=== PATIENT | female | born 1975 | race Caucasian/White ===

== ENCOUNTER 2020-12-14 17:00 | Emergency (ER) | payer BC, SELFPAY ==
--- NOTE | 2020-12-14 17:10 | XR_ITS ---
PROCEDURE INFORMATION: Exam: XR Chest Exam date and time: 12/14/2020 5:10 PM Age: 45 years old Clinical indication: Cough; Additional info: Fever, cough, TECHNIQUE: Imaging protocol: XR of the chest. Views: 2 views. COMPARISON: CR CXR CHEST(2 VIEWS-NOT PORTABLE) 02/16/2015 11:17 PM FINDINGS: Lungs: Unremarkable. No consolidation. Pleural spaces: Unremarkable. No pleural effusion. No pneumothorax. Heart/Mediastinum: Unremarkable. No cardiomegaly. Bones/joints: Unremarkable. IMPRESSION: No acute findings.
--- NOTE | 2020-12-14 17:10 | HMH.EDUTC ---
[facility] – [place] Disposition Clinical Impression: Viral syndrome Asthma exacerbation Qualifiers: Asthma severity: unspecified severity Asthma persistence: unspecified Qualified Code(s): J45.901 - Unspecified asthma with (acute) exacerbation Disposition: Home, Self-Care Condition on Discharge: Good Instructions: DI for Asthma -- Adult Additional Instructions: Drink plenty of fluids. Take tylenol or ibuprofen for pain or fever. Take the medications as directed. Follow up with your regular doctor. GO TO THE ER FOR ANY WORSENING SYMPTOMS Prescriptions: methylPREDNISolone [Medrol] 4 mg PO DIRECTED 6 Days #21 tab.[email or web address] Transmission Status: Received by [facility] Benzonatate [Tessalon Perle 100mg Cap] 100 mg PO TIDP PRN #30 cap PRN Reason: Cough Transmission Status: Received by [facility] Azithromycin [Z-Madi 250mg Tab*] 250 mg PO UD DOSE PK #6 tab Transmission Status: Received by [facility] Referrals: Luis A Abbott MD [Primary Care Provider] - Forms: Work/School Release Time of Disposition: 19:10 Medical Decision Making - Medical Records Medical records reviewed: No: I reviewed the patient's medical records. - Bran Inquiry Pt receiving controlled substance: No Vital Signs: 12/14/20 17:19 12/14/20 19:15 Temperature 102.4 F H 98.9 F Temperature Source Oral Oral Pulse Rate 119 H Pulse Rate [Left] 136 H Respiratory Rate 28 H 22 Blood Pressure 145/83 H Blood Pressure [Right Arm] 153/84 H Blood Pressure Mean [Right Arm] 107 02 Sat by Pulse Oximetry 93 L Oxygen Delivery Method Room Air - Lab Data Lab Results 12/14/20 15:26: Chlamy pneumoniae PCR Not detected, Adenovirus (PCR) Not detected, B. pertussis DNA (PCR) Not detected, Coronavirus OC43 (PCR) Not detected, Coronavirus HKU1 (PCR) Not detected, Coronavirus 229E (PCR) Not detected, Coronavirus NL63 (PCR) Not detected, Human Metapneumovir PCR Not detected, Influenza A (H1) PCR Not detected, Influ A (H1N1/09) PCR Not detected, Influenza A (H3) PCR Not detected, Influenza Type A (PCR) Not detected, Influenza Type B (PCR) Not detected, M. pneumoniae (PCR) Not detected, Parainfluenza 1 (PCR) Not detected, Parainfluenza 2 (PCR) Not detected, Parainfluenza 3 (PCR) Not detected, Parainfluenza 4 (PCR) Not detected, RSV (PCR) Not detected, Entero/Rhino (PCR) Detected A 12/14/20 15:26: SARS-CoV-2 (PCR) Not detected, Influenza A Untype (PCR) Not detected, Influenza Type B (PCR) Not detected 12/14/20 17:50: WBC 12.1 H, RBC 4.79, Hgb 15.1, Hct 43.5, MCV 90.8, MCH 31.5 H, MCHC 34.6, RDW 13.5, Plt Count 264, MPV 8.4, Neut % (Auto) 75.3, Lymph % (Auto) 17.3, Mclean % (Auto) 3.6, Eos % (Auto) 3.1, Baso % (Auto) 0.7, Neut # (Auto) 9.1 H, Lymph # (Auto) 2.1, Mclean # (Auto) 0.4, Eos # (Auto) 0.4, Baso # (Auto) 0.1 12/14/20 17:50: Sodium 143, Potassium 4.2, Chloride 106, Carbon Dioxide 27, Anion Gap 14.2, BUN 5 L, Creatinine 0.70, Estimated Creat Clear 178, Estimated GFR 91, Est GFR ( Amer) 111, Glucose 101 H, Calcium 9.6, Total Bilirubin 0.5, AST 37 H, ALT 51, Alkaline Phosphatase 96, Total Protein 8.1, Albumin 4.9, Globulin 3.2, Albumin/Globulin Ratio 1.5 Result diagrams: 12/14/20 17:50 12/14/20 17:50 Orders (Tests/Meds): ED MEDICATIONS Discontinued Medications Generic Name Dose Route Start Last Admin Trade Name Freq PRN Reason Stop Dose Admin Acetaminophen 1,000 mg 12/14/20 17:15 Acetaminophen 500mg Tab PO 12/14/20 17:16 ONCE ONE Acetaminophen 975 mg 12/14/20 17:17 12/14/20 17:18 Acetaminophen 325mg Tab PO 12/14/20 17:18 975 mg ONCE ONE Administration Albuterol/Ipratropium 3 ml 12/14/20 18:00 12/14/20 18:01 Ipratropium/Albuterol 3 Ml Neb IH 12/14/20 18:01 3 ml ONCE ONE Administration Azithromycin 500 mg 12/14/20 19:02 12/14/20 19:03 Azithromycin 250mg Tablet PO 12/14/20 19:03 500 mg ONCE ONE Administration Protocol Sodium Chloride 1,000 mls @ 999 mls/hr 12/14/20 18:00
[2020-12-14 17:11] VITALS: BMI 38.7
[2020-12-14 17:19] VITALS: BP 153/84; PULSE 136; RESP 28; TEMP 39.1; O2SAT 93; BMI 38.7
[2020-12-14 17:21] LABS: Adenovirus,PCR Not Detected (NotDetected); Coronavirus 229E Not Detected (NotDetected); Coronavirus NL63 Not Detected (NotDetected); Coronavirus OC43 Not Detected (NotDetected); Coronovirus HKU1,PCR Not Detected (NotDetected); Human Metapneumovirus Not Detected (NotDetected); Influenza A, PCR Not Detected (NotDetected); Influenza AH1, 2009 Not Detected (NotDetected); Influenza AH1, PCR Not Detected (NotDetected); Influenza AH3,PCR Not Detected (NotDetected)
[2020-12-14 17:22] LABS: Bordetella Pertussis Not Detected (NotDetected); Chlamydophila Pneumoniae, PCR Not Detected (NotDetected); Coronavirus 19, PCR Not Detected (NotDetected); Influenza A, PCR Not Detected (NotDetected); Influenza B, PCR Not Detected (NotDetected); Mycoplasma Pneumoniae, PCR Not Detected (NotDetected); Parainfluenza 1, PCR Not Detected (NotDetected); Parainfluenza 2, PCR Not Detected (NotDetected); Parainfluenza 3, PCR Not Detected (NotDetected); Parainfluenza 4, PCR Not Detected (NotDetected); Respiratory Syncytial Virus Not Detected (NotDetected)
[2020-12-14 17:59] LABS: Basophils # 0.1 K/mm3 (0-0.2); Basophils % 0.7 % (0.1-2.0); Eosinophils # 0.4 K/mm3 (0.0-0.4); Eosinophils % 3.1 % (0.1-12.0); Hematocrit 43.5 % (37.0-47.0); Hemoglobin 15.1 g/dL (12.2-16.2); Lymphocytes # 2.1 K/mm3 (0.7-4.5); Lymphocytes % 17.3 % (10-50); Mean Corpuscular HGB Conc 34.6 g/dL (31.8-35.4); Mean Corpuscular Hemoglobin 31.5 pg (27.0-31.2); Mean Corpuscular Volume 90.8 fl (81-99); Mean Platelet Volume 8.4 fl (7.4-10.4); Monocytes # 0.4 K/mm3 (0.1-1.0); Monocytes % 3.6 % (1.7-9.3); Neutrophils # 9.1 K/mm3 (1.8-7.8); Neutrophils % 75.3 % (37.0-80.0); Platelet Count 264 K/mm3 (142-424); Red Blood Count 4.79 M/mm3 (4.20-5.40); Red Cell Distribution Width 13.5 % (11.5-17.5); White Blood Count 12.1 K/mm3 (4.8-10.8)
[2020-12-14 18:06] LABS: Alanine Aminotransferase 51 U/L (12-78); Albumin Level 4.9 g/dl (3.5-5.0); Albumin/Globulin Ratio 1.5 (1.1-1.8); Alkaline Phosphatase 96 U/L (38-126); Anion Gap 14.2 mEq/L (5-15); Aspartate Amino Transferase 37 U/L (14-36); Bilirubin,Total 0.5 mg/dl (0.2-1.3); Blood Urea Nitrogen 5 mg/dl (7-17); Calcium 9.6 mg/dl (8.4-10.2); Carbon Dioxide 27 mmol/L (22.0-30.0); Chloride 106 mmol/L (98-107); Creatinine Clearance Estimated 178 mL/min (50-200); Estimated Glomerular Filt Rate 91 ml/min (>60); GFR (African American) 111 ML/MIN (>60); Globulin 3.2 g/dL (1.3-3.2); Glucose 101 mg/dl (74-100); Potassium 4.2 mmoL/L (3.5-5.1); Sodium 143 mmol/L (136-145); Total Protein,Serum 8.1 g/dl (6.3-8.2)
[2020-12-14 18:45] LABS: Rhinovirus/Enterovirus Detected (NotDetected)
[2020-12-14 19:15] VITALS: BP 145/83; PULSE 119; RESP 22; TEMP 37.2; O2SAT 94
[2020-12-18 14:02] LABS: UTC Strep Screen (Rapid) Negative (Negative)
== END 2020-12-14 19:18 | disposition home or self-care (01) ==
PROVIDERS: Emergency Provider Nurse Practitioner Family; PCP Internal Medicine Adolescent Medicine
DX: B34.8 Other viral infections of unspecified site (principal); J45.901 Unspecified asthma with (acute) exacerbation
CPT/HCPCS: 71046; 80053; 85025; 87486; 87581; 87633; 87798; 87880; 96365; 96366; 96375; 99203; G0463; J2405; U0003

== ENCOUNTER → 2021-01-30 16:05 | Outpatient (CLI) | payer BC, SELFPAY ==
[2021-01-30 16:43] LABS: Basophils # 0.1 K/mm3 (0-0.2); Basophils % 0.7 % (0.1-2.0); Eosinophils # 0.3 K/mm3 (0.0-0.4); Eosinophils % 2.8 % (0.1-12.0); Hematocrit 43.3 % (37.0-47.0); Hemoglobin 14.7 g/dL (12.2-16.2); Lymphocytes # 3.3 K/mm3 (0.7-4.5); Lymphocytes % 29.5 % (10-50); Mean Corpuscular HGB Conc 33.9 g/dL (31.8-35.4); Mean Corpuscular Hemoglobin 32.4 pg (27.0-31.2); Mean Corpuscular Volume 95.6 fl (81-99); Mean Platelet Volume 8.6 fl (7.4-10.4); Monocytes # 0.6 K/mm3 (0.1-1.0); Monocytes % 5.2 % (1.7-9.3); Neutrophils # 6.9 K/mm3 (1.8-7.8); Neutrophils % 61.7 % (37.0-80.0); Platelet Count 277 K/mm3 (142-424); Red Blood Count 4.53 M/mm3 (4.20-5.40); White Blood Count 11.1 K/mm3 (4.8-10.8)
[2021-01-30 16:53] LABS: Monoscreen (Rapid) Negative (Negative)
[2021-01-30 17:09] LABS: Coronavirus 19 IgG Antibody Negative (Negative)
[2021-01-30 17:10] LABS: Coronavirus 19 IgM Antibody Negative (Negative)
[2021-01-30 18:23] LABS: Chloride 103 mmol/L (98-107); Potassium 4.4 mmoL/L (3.5-5.1); Sodium 142 mmol/L (136-145)
[2021-01-30 18:26] LABS: Alanine Aminotransferase 30 U/L (12-78); Albumin Level 4.6 g/dl (3.5-5.0); Albumin/Globulin Ratio 1.6 (1.1-1.8); Alkaline Phosphatase 112 U/L (38-126); Anion Gap 15.4 mEq/L (5-15); Aspartate Amino Transferase 30 U/L (14-36); Bilirubin,Total 0.2 mg/dl (0.2-1.3); Blood Urea Nitrogen 21 mg/dl (7-17); Carbon Dioxide 28 mmol/L (22.0-30.0); Estimated Glomerular Filt Rate 91 ml/min (>60); GFR (African American) 110 ML/MIN (>60); Globulin 2.8 g/dL (1.3-3.2); Total Protein,Serum 7.4 g/dl (6.3-8.2)
[2021-01-30 18:27] LABS: Calcium 9.4 mg/dl (8.4-10.2); Glucose 94 mg/dl (74-100)
[2021-02-01 15:31] LABS: EBV Ab VCA, IgM <36.0 U/mL (0.0-35.9)
== END ==
PROVIDERS: Visit Provider Internal Medicine Adolescent Medicine
DX: Z20.822 Contact with and (suspected) exposure to COVID-19 (principal); R50.9 Fever, unspecified; J02.9 Acute pharyngitis, unspecified
CPT/HCPCS: 36415; 80053; 85025; 86318; 86328; 86664; 86665

== ENCOUNTER → 2021-01-31 16:06 | Outpatient (CLI) | payer BC, SELFPAY | PROVIDERS: Visit Provider Internal Medicine Adolescent Medicine | DX: J02.9 Acute pharyngitis, unspecified (principal) | CPT/HCPCS: 87070 ==

== ENCOUNTER → 2021-03-26 09:19 | Outpatient (CLI) | payer BC, SELFPAY | PROVIDERS: PCP Internal Medicine Adolescent Medicine; Visit Provider Nurse Practitioner | DX: Z20.822 Contact with and (suspected) exposure to COVID-19 (principal); U07.1 COVID-19 | CPT/HCPCS: C9803; U0003; U0005 ==

== ENCOUNTER 2021-03-28 07:55 | Outpatient (CLI) | payer BC, SELFPAY ==
[2021-03-28] VITALS (8 sets, daily range): BP systolic 101–116; BP diastolic 40–73; PULSE 70–88; RESP 18; TEMP 36.8–36.9; O2SAT 95–99
== END 2021-03-28 10:25 | disposition home or self-care (01) ==
LOC: INF 07:56
PROVIDERS: PCP Internal Medicine Adolescent Medicine; Visit Provider Internal Medicine Adolescent Medicine
DX: U07.1 COVID-19 (principal); Z23 Encounter for immunization
CPT/HCPCS: 96365

== ENCOUNTER 2021-05-14 16:33 | Emergency (ER) | payer BC, SELFPAY ==
[2021-05-14 16:35] VITALS: BP 141/85; PULSE 128; RESP 34; TEMP 36.7; O2SAT 97; BMI 38.7
--- NOTE | 2021-05-14 17:07 | HMH.EDUTC ---
[facility] [place] Impression: Anxiety attack Disposition: Home, Self-Care Condition on Discharge: Good Instructions: Anxiety and Panic Attacks (Alternative Therapy), DI for Anxiety -- Adult, Hydroxyzine Additional Instructions: Follow up with Family Doctor or Behavioral Health if symptoms persist Straight to ER if you have any chest pain or thoughts of self harm or hurting others Return if needed Straight to ER if symptoms return or worsen Try calming techniques as discussed to help control breathing Prescriptions: hydrOXYzine pamoate [Vistaril] 50 mg PO Q8HP PRN #12 cap PRN Reason: Anxiety Transmission Status: Received by [facility] Referrals: Luis A Abbott MD [Primary Care Provider] - As needed Time of Disposition: 18:00 Medical Decision Making - Bran Inquiry Pt receiving controlled substance: No Bran was queried for this patient: No Vital Signs: 05/14/21 16:35 05/14/21 18:03 Temperature 98.1 F 98.1 F Temperature Source Oral Pulse Rate 94 H Pulse Rate [Left Brachial] 128 H Respiratory Rate 34 H 24 Blood Pressure 141/85 H Blood Pressure [Left Arm] 141/85 H Blood Pressure Mean [Left Arm] 103 Blood Pressure Source [Left Arm] Automatic Cuff Blood Pressure Position [Left Arm] Sitting 02 Sat by Pulse Oximetry 97 Oxygen Delivery Method Room Air Orders (Tests/Meds): ED MEDICATIONS Discontinued Medications Generic Name Dose Route Start Last Admin Trade Name Freq PRN Reason Stop Dose Admin Hydroxyzine Pamoate 50 mg 05/14/21 17:09 05/14/21 17:14 Hydroxyzine Pamoate 25mg Capsule PO 05/14/21 17:10 50 mg ONCE ONE Administration Medical Decision Narrative: Discussed with patient and recommended transfer to the ED patient agreed Called ED spoke with Garce Hurt RN no available bed at this time will call back While patient waiting to be transferred to the ED patient was given 50mg of Vistaril for anxiety will monitior Patient states that she is feeling much better since medication no longer feeling like she is having a hard time breathing or hyperventilating States that she feels more calm and doesnt feel flush anymore and no longer wants to be transferred to the ED that she will return if symptoms return or worsen Patient educated and still declined transfer Discussed with patient and recommended follow up with Barbara Lovell [facility] for further evaluation and treatment Patient sitting calmly on exam table no distress no longer appears flush and no longer tearful [facility] [place] - General Stated complaint: anxiety, flush, doesn't feel good Time Seen by Provider: 05/14/21 17:08 Mode of Arrival: Ambulatory Source of Information: Patient Limitations: No Limitations Description of Symptoms (Recalled from Triage Doc. by RN): PATIENT C/O SOA, FLUSHED, HEADACHE, AND FEELS LIKE SHE IS HAVING AN ANXIETY/PANIC ATTACK. REPORTS SHE HAS FELT LIKE THIS ALL DAY. SHE STATES I HAVE AN ADDICT SON WHO IS SELLING HIS GREGORY PRESENTS AND WON'T LEAVE MY HOUSE . PATIENT TEARFUL AT THIS TIME HEENT Symptoms (Recalled from RN notes): No Resp Symptoms (Recalled from RN notes): No Skin Symptoms (Recalled from RN notes): No MS Symptoms (Recalled from RN notes): No Functional Status (Recalled from RN notes): WNL - History of Present Illness Provider Complaint: Patient state that she feels like she is having an anxiety attack States that she has been dealing with her drug addicted son and has been taking and selling everything they got for Di[employer] and today she was trying to get him to leave her house and he wouldnt States that she felt anxious, crying, felt like she couldnt catch her breath and nervous all over States that she was trying to calm down but wasnt able to so she came in - Related Data Previous Rx's Medication Instructions Recorded hydrOXYzine pamoate [Vistaril] 50 mg PO Q8HP PRN #12 cap 05/14/21 Allergies Allergy/AdvReac Type Severity Reaction Stat
[2021-05-14 18:03] VITALS: BP 141/85; PULSE 94; RESP 24; TEMP 36.7; O2SAT 97
== END 2021-05-14 18:08 | disposition home or self-care (01) ==
PROVIDERS: Emergency Provider Nurse Practitioner; PCP Internal Medicine Adolescent Medicine
DX: F41.0 Panic disorder [episodic paroxysmal anxiety] (principal); Z88.5 Allergy status to narcotic agent; Z90.13 Acquired absence of bilateral breasts and nipples
CPT/HCPCS: 99202; G0463

== ENCOUNTER → 2022-09-03 15:33 | Outpatient (CLI) | payer BC, SELFPAY | PROVIDERS: PCP Internal Medicine Adolescent Medicine; Visit Provider Internal Medicine Adolescent Medicine | DX: G47.33 Obstructive sleep apnea (adult) (pediatric) (principal); R06.83 Snoring; R40.0 Somnolence; E66.9 Obesity, unspecified | CPT/HCPCS: G0399 ==

== ENCOUNTER → 2022-09-14 15:41 | Outpatient (CLI) | payer BC, SELFPAY | PROVIDERS: PCP Internal Medicine Adolescent Medicine; Visit Provider Internal Medicine Adolescent Medicine | DX: G47.30 Sleep apnea, unspecified (principal) | CPT/HCPCS: 93225; 93226 ==

== ENCOUNTER → 2022-09-22 14:50 | Outpatient (CLI) | payer BC, SELFPAY ==
--- NOTE | 2022-09-22 15:01 | CT_ITS ---
PROCEDURE INFORMATION: Exam: CT Abdomen And Pelvis With Contrast Exam date and time: 09/22/2022 5:19 PM Age: 47 years old Clinical indication: Abdominal pain; Epigastric; Prior surgery; Surgery date: 6+ months; Surgery type: Choleycystectomy, appendectomy. ; Additional info: Epigastric pain with nausea. Patient is taking abdominal injections that can cause pancreatits she stated. TECHNIQUE: Imaging protocol: Computed tomography of the abdomen and pelvis with contrast. Radiation optimization: All CT scans at this facility use at least one of these dose optimization techniques: automated exposure control; mA and/or kV adjustment per patient size (includes targeted exams where dose is matched to clinical indication); or iterative reconstruction. Contrast material: ISOVUE; Contrast volume: 75 ml; Contrast route: IV; REPORTING DATA: Count of CT and Cardiac NM exams in prior 12 months: This patient has received 0 known CTs and 0 known cardiac nuclear medicine studies in the 12 months prior to the current study. COMPARISON: CR XR CHEST 2V 12/14/2020 5:10 PM FINDINGS: Lungs: A 7 mm subpleural nodule noted in the anterolateral left lower lobe centered on axial image 3. Lung bases otherwise clear. Liver: Fatty liver changes are noted. No focal lesions seen. Gallbladder and bile ducts: Gallbladder has been removed. No evident bile duct dilatation. Pancreas: Normal. No ductal dilation. Spleen: Normal. No splenomegaly. Adrenal glands: Normal. No mass. Kidneys and ureters: Normal. No hydronephrosis. Stomach and bowel: Unremarkable. No obstruction. No mucosal thickening. Appendix: Appendix surgically absent per history. Intraperitoneal space: See Liver finding. Vasculature: Unremarkable. No abdominal aortic aneurysm. Lymph nodes: Unremarkable. No enlarged lymph nodes. Urinary bladder: Unremarkable as visualized. Reproductive: Status post hysterectomy. Pelvic viscera otherwise unremarkable with no pelvic mass or free fluid. Bones/joints: Unremarkable. No acute fracture. Soft tissues: Unremarkable. IMPRESSION: 1. No acute abnormalities of the abdomen and pelvis. 2. A 7 mm left lower lobe nodule. For patients at low risk (minimal or absent history of smoking and of other known risk factors), recommend CT Chest at 6-12 months, then consider CT Chest at 18-24 months. For patients at high risk (history of smoking or of other known risk factors), recommend CT Chest at 6-12 months, then [address] Chest at 18-24 months. (Reference: Radhames) 3. Additional nonemergent findings as above. REFERENCES: Radhames Flores, et al. Guidelines for Management of Incidental Pulmonary Nodules Detected on CT Images: From the Fleischner Society 2017. Radiology. 2017;284(1):228-243.
[2022-09-22 15:29] LABS: Basophils % 0.4 % (0.1-2.0); Eosinophils # 0.2 K/mm3 (0.0-0.4); Eosinophils % 1.9 % (0.1-12.0); Hematocrit 43.8 % (37.0-47.0); Hemoglobin 14.6 g/dL (12.2-16.2); Lymphocytes # 2.9 K/mm3 (0.7-4.5); Lymphocytes % 24.2 % (10-50); Mean Corpuscular HGB Conc 33.4 g/dL (31.8-35.4); Mean Corpuscular Hemoglobin 31.3 pg (27.0-31.2); Mean Corpuscular Volume 93.7 fl (81-99); Mean Platelet Volume 8.7 fl (7.4-10.4); Monocytes # 0.5 K/mm3 (0.1-1.0); Monocytes % 3.8 % (1.7-9.3); Neutrophils # 8.2 K/mm3 (1.8-7.8); Neutrophils % 69.6 % (37.0-80.0); Platelet Count 257 K/mm3 (142-424); Red Blood Count 4.68 M/mm3 (4.20-5.40); Red Cell Distribution Width 13.2 % (11.5-17.5); White Blood Count 11.8 K/mm3 (4.8-10.8)
[2022-09-22 16:15] LABS: Alanine Aminotransferase 71 U/L (12-78); Albumin Level 4.6 g/dl (3.5-5.0); Albumin/Globulin Ratio 1.7 (1.1-1.8); Alkaline Phosphatase 97 U/L (38-126); Amylase 60 U/L (30-110); Anion Gap 16.4 mEq/L (5-15); Aspartate Amino Transferase 56 U/L (14-36); Bilirubin,Total 0.4 mg/dl (0.2-1.3); Blood Urea Nitrogen 14 mg/dl (7-17); Calcium 9.1 mg/dl (8.4-10.2); Carbon Dioxide 29 mmol/L (22.0-30.0); Chloride 99 mmol/L (98-107); Estimated Glomerular Filt Rate 90 ml/min (>60); GFR (African American) 109 ML/MIN (>60); Globulin 2.7 g/dL (1.3-3.2); Glucose 106 mg/dl (74-100); Lipase 85 U/L (23-300); Potassium 4.4 mmoL/L (3.5-5.1); Sodium 140 mmol/L (136-145); Total Protein,Serum 7.3 g/dl (6.3-8.2)
== END ==
PROVIDERS: PCP Internal Medicine Adolescent Medicine; Visit Provider Internal Medicine Adolescent Medicine
DX: R10.13 Epigastric pain (principal)
CPT/HCPCS: 36415; 74177; 80053; 82150; 83690; 85025; Q9967